=== PATIENT | female | born 1990 | race Caucasian/White ===

== ENCOUNTER 2016-09-21 13:29 | Outpatient (CLI) | payer OTHER ==
[~2016-09-21 13:29] MED LIST: COLACE100 MG PO; IBUPROFEN600 MG PO; NORCO 5-325 TA1 EACH PO
== END 2016-09-21 16:06 | disposition home or self-care (01) ==
LOC: GENOP 13:29
DX: O46.93 Antepartum hemorrhage, unspecified, third trimester (principal); Z3A.34 34 weeks gestation of pregnancy
CPT/HCPCS: 81001; G0463

== ENCOUNTER 2016-10-16 17:04 | Inpatient (IN) | payer OTHER ==
[~2016-10-16] VITALS: Ht 157.5 cm; Wt 84.8 kg
[2016-10-16 17:57] LABS: HEMOGLOBIN 12.1 gm/dl (12.3-15.3); RED BLOOD COUNT 3.93 M/UL (4.00-5.10); WHITE BLOOD COUNT 8.5 K/UL (4.5-11.0)
[2016-10-18 04:18] LABS: HEMOGLOBIN 10.3 gm/dl (12.3-15.3)
[2016-10-18] MEDS ORDERED: NORCO 5-325 TA1 EACH PO (10:21)
== END 2016-10-18 17:43 | disposition home or self-care (01) | DRG 774 ==
LOC: GENOP 17:04 → OB 17:27
PROVIDERS: ADMIT Obstetrics & Gynecology
PROC: 3E0P7GC Introduction of Other Therapeutic Substance into Female Reproductive, Via Natural or Artificial Opening (ICD-10-PCS; 2016-10-16)
PROC: 10E0XZZ Delivery of Products of Conception, External Approach (ICD-10-PCS; principal; 2016-10-17)
PROC: 3E033VJ Introduction of Other Hormone into Peripheral Vein, Percutaneous Approach (ICD-10-PCS; 2016-10-17)
PROC: 10907ZC Drainage of Amniotic Fluid, Therapeutic from Products of Conception, Via Natural or Artificial Opening (ICD-10-PCS; 2016-10-17)
PROC: 3E0R3CZ (ICD-10-PCS; 2016-10-17)
PROC: 3E0234Z Introduction of Serum, Toxoid and Vaccine into Muscle, Percutaneous Approach (ICD-10-PCS; 2016-10-17)
DX: O41.03X0 Oligohydramnios, third trimester, not applicable or unspecified (principal); O98.32 Other infections with a predominantly sexual mode of transmission complicating childbirth; Z3A.38 38 weeks gestation of pregnancy; Z37.0 Single live birth; Z03.74 Encounter for suspected problem with fetal growth ruled out; A63.0 Anogenital (venereal) warts; O99.214 Obesity complicating childbirth; E66.9 Obesity, unspecified; Z68.34 Body mass index [BMI] 34.0-34.9, adult; Z23 Encounter for immunization; Z80.1 Family history of malignant neoplasm of trachea, bronchus and lung; Z80.9 Family history of malignant neoplasm, unspecified; Z83.3 Family history of diabetes mellitus; Z82.49 Family history of ischemic heart disease and other diseases of the circulatory system
CPT/HCPCS: 36415; 51702; 81001; 82800; 85014; 85018; 85025; 90715; C9113; J2405; J2590; J2795; J3010; J3430; J7120